=== PATIENT | female | born 2000 | race Caucasian/White ===

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

== ENCOUNTER 2020-09-12 08:26 | Emergency (ER) | payer OTHER ==
[2020-09-12 08:48] VITALS: BP 119/80; PULSE 73; TEMP 99.2; BMI 22.3
[2020-09-12] MEDS ORDERED: KETOROLAC TROMETHAMINE 15 MG/ML VIAL IVPUSH ONE (09:19)
[2020-09-12] MEDS ORDERED: SODIUM CHLORIDE 0.9% 500 ML INFUS.BAG IV ONE (09:20)
[2020-09-12] MEDS ORDERED: KETOROLAC TROMETHAMINE 15 MG/ML VIAL ONE (09:23)
[2020-09-12 09:35] LABS: EPITHELIAL CELLS MODERATE /hpf
[2020-09-12 09:54] LABS: BASO % 1.2 % (0-2.0); EOS % 0.7 % (0-4.5); HEMATOCRIT 35.1 % (32.4-45.2); HEMOGLOBIN 11.8 GM/dl (10.7-15.3); LYMPH % 19.5 % (8-40); MCH 30.1 pg (25.7-33.7); MCHC 33.7 g/dl (32.0-36.0); MEAN CELL VOLUME 89.5 fl (80-96); MEAN PLT VOLUME 8.4 fl (7.5-11.1); MONO % 5.8 % (3.8-10.2); NEUT % 72.8 % (42.8-82.8); PLATELET COUNT 256 K/MM3 (134-434); RBC 3.93 M/mm3 (3.60-5.2); RDW 10.9 % (11.6-15.6); WHITE BLOOD COUNT 7.7 K/mm3 (4.0-10.8)
[2020-09-12 10:01] LABS: ALBUMIN 3.4 g/dl (3.4-5.0); BILIRUBIN,TOTAL 0.3 mg/dl (0.2-1); CALCIUM 8.7 mg/dl (8.5-10); CREATININE 0.7 mg/dl (0.55-1.3); POTASSIUM 3.8 mmol/L (3.5-5.1); TOT PROT 6.5 g/dl (6.4-8.2)
== END 2020-09-12 13:29 | disposition home or self-care (01) ==
LOC: FER 08:26
PROC: 3E0333Z Introduction of Anti-inflammatory into Peripheral Vein, Percutaneous Approach (ICD-10-PCS; principal; 2020-09-12)
DX: N10 Acute pyelonephritis (principal)
CPT/HCPCS: 36415; 76775-TC; 80053; 81003; 81015; 84703; 85025; 87086; 87186; 99284-25